=== PATIENT | female | born 1980 | race Caucasian/White ===

== ENCOUNTER 2018-07-25 06:15 | Day surgery (SDC) | payer OTHER ==
[2018-07-25] MEDS ORDERED: LR 1,000 ML IV ONE (06:31)
[2018-07-25] MEDS ORDERED: LIDOCAINE 1% 2 ML INJ ID PRN (06:31)
[2018-07-25] MEDS ORDERED: MONSELS-FERRIC SUBSULFATE 8 GM SDV TP ONE (06:56)
[2018-07-25] MEDS ORDERED: ACETIC ACID IRR SOLN 0.25% 1,000 ML BTL ONE (07:00)
[2018-07-25] MEDS ORDERED: SILVER SULFADIAZINE 50 GM JAR TP ONE (07:15)
[2018-07-25] MEDS ORDERED: MIDAZOLAM 2 MG/2 ML VIAL IVP ONE (08:01)
[2018-07-25] MEDS ORDERED: MIDAZOLAM 2 MG/2 ML VIAL ONE (08:03)
[2018-07-25] MEDS ORDERED: SCOPOLAMINE HYDROBROMIDE 1 MG/3 DAYS PATCH TD ONE (08:03)
--- NOTE | 2018-07-25 08:04 | PDANEPAE ---
ANE History of Present Illness Laser genital Condyloma ANE Past Medical History - Cardiovascular History Hx Hypertension: No Hx Arrhythmias: No Hx Chest Pain: No Hx Coronary Artery / Peripheral Vascular Disease: No Hx CHF / Valvular Disease: No Hx Palpitations: No - Pulmonary History Hx COPD: No Hx Asthma/Reactive Airway Disease: Yes Hx Recent Upper Respiratory Infection: No Hx Oxygen in Use at Home: No Hx Sleep Apnea: No Sleep Apnea Screening Result - Last Documented: Negative Pulmonary History Comment: JUVENILE ASTHMA - NONE IN ADULTHOOD. PNEUMONIA IN 20s - Neurologic History Hx Cerebrovascular Accident: No Hx Seizures: No Hx Dementia: No Neurologic History Comment: HORMONAL MIGRAINES OCCAS - Endocrine History Hx Diabetes: No Hypothyroid: No Hyperthyroid: No Obesity: no - Renal History Hx Renal Disorders: No - Liver History Hx Hepatic Disorders: No - Neurological & Psychiatric Hx Hx Neurological and Psychiatric Disorders: No - Cancer History Hx Cancer: No Cancer History Comment: CIM 3 GENE - Congenital Disorder History Hx Congenital Disorders: No - GI History GERD: no Hx Gastrointestinal Disorders: Yes Gastrointestinal History Comment: 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 HPV GENITAL - Chronic Pain History Chronic Pain: Yes (PLANTAR FASCITIS) - Surgical History Prior Surgeries: WISDOM TEETH ANE Review of Systems Review of systems is: negative Review of Systems: - Exercise capacity METS (RN): 5 METS ANE Patient History - Allergies Allergies/Adverse Reactions: hydrocodone [Hydrocodone] Allergy (Verified 06/28/18 12:37) DIZZY & NAUSEA - Home Medications Home medications: home medication list seen and reviewed (dark coffee no cream) Home Medications: Herbals/Supplements -Info Only 06/28/18 [Last Taken 07/10/18] Ibuprofen 06/28/18 [Last Taken 07/17/18] - NPO status NPO Since - Liquids (Date): 07/25/18 NPO Since - Liquids (Time): 05:30 NPO Since - Solids (Date): 07/24/18 NPO Since - Solids (Time): 21:00 - Smoking Hx Smoking Status: Never smoked Marijuana use: No - Alcohol Use Alcohol Use: Rarely - Family Anes Hx Family Anes Hx: none Family Hx Anesthesia Complications: NEG ANE Labs/Vital Signs - Vital Signs Blood Pressure: 148/88 Heart Rate: 85 Respiratory Rate: 16 O2 Sat (%): 99 Height: 158.75 cm Weight: 69.853 kg ANE Physical Exam - Airway Neck exam: FROM Mallampati Score: Class 1 Mouth exam: normal dental/mouth exam - Pulmonary Pulmonary: no respiratory distress, no rales or rhonchi - Cardiovascular Cardiovascular: regular rate and rhythym, no murmur, rub, or gallop - ASA Status ASA Status: I ANE Anesthesia Plan Anesthesia Plan: GA w LMA
[2018-07-25] MEDS ORDERED: fentaNYL 100 MCG/2 ML INJ ONE ×5 (08:11→10:00)
[2018-07-25] MEDS ORDERED: PROPOFOL/EMULSION 500 MG/50 ML BOTTLE IV ONE (08:11)
--- NOTE | 2018-07-25 08:14 | PDHPUP ---
History & Physical Update H&P update statement: This history and physical update is based on an assessment of the patient which was completed after admission or registration (within 24 hours), but prior to the surgery/procedure. H&P update: H&P reviewed & patient examined, no change in patient's condition since H&P completed
[2018-07-25] MEDS ORDERED: SCOPOLAMINE HYDROBROMIDE 1 MG/3 DAYS PATCH TD SCH (08:15)
[2018-07-25] MEDS ORDERED: ONDANSETRON 4 MG/2 ML VIAL ONE (08:20)
[2018-07-25] MEDS ORDERED: DEXAMETHASONE 4 MG/ML VIAL ONE (08:20)
[2018-07-25] MEDS ORDERED: KETOROLAC 30 MG/1 ML SDV ONE (08:20)
[2018-07-25] MEDS ORDERED: PROPOFOL 200 MG/20 ML VIAL ONE ×4 (08:32→10:00)
[2018-07-25] MEDS ORDERED: LIDOCAINE 1% 300 MG/30 ML SDV ONE (08:33)
[2018-07-25] MEDS ORDERED: METOCLOPRAMIDE 10 MG/2 ML VIAL ONE (08:37)
[2018-07-25] MEDS ORDERED: POTASSIUM IODIDE/IODINE (LUGOL'S SOLN) 500 ML TP ONE (09:00)
[2018-07-25] MEDS ORDERED: PHENYLEPHRINE HCL 100 MCG/ML SYR ONE (09:08)
[2018-07-25] MEDS ORDERED: ACETAMINOPHEN 500 MG TAB PO PRN (10:29)
[2018-07-25] MEDS ORDERED: fentaNYL 100 MCG/2 ML INJ IVP PRN (10:29)
[2018-07-25] MEDS ORDERED: NALOXONE HCL 0.4 MG/ML INJ IVP PRN (10:29)
[2018-07-25] MEDS ORDERED: HYDROmorphONE/DILAUDID 1 MG/ML INJ IVP PRN (10:29)
[2018-07-25] MEDS ORDERED: ONDANSETRON 4 MG/2 ML VIAL IVP PRN (10:29)
[2018-07-25] MEDS ORDERED: PROMETHAZINE HCL 25 MG/ML INJ IVP PRN (10:29)
[2018-07-25] MEDS ORDERED: oxyCODONE IR 5 MG TAB PO PRN (10:29)
--- NOTE | 2018-07-25 10:31 | POSTANESTH ---
Post Anesthetic Evaluation Cardiovascular Status: Normal, Stable Respiratory Status: Normal, Stable Level of Consciousness/Mental Status: Can Participate in Eval Pain Control: Adequate, Prn Tx Ordered Nausea/Vomiting Control: Adequate, Prn Tx Ordered Complications Possibly Related to Anesthesia: None Noted
--- NOTE | 2018-07-25 10:37 | POSTOPPROG ---
Post Op Note Date of Operation: 07/25/18 Surgeon: Denisse Roman Anesthesiologist: Ivonne Meyers MD Anesthesia: LMA Pre-op Diagnosis: vulvar, vaginal anal condyloma Post-op Diagnosis: same Indication: as above Procedure: laser fulgarization of condyloma Findings: several condyloma on right labia majora and several on introitus , multipl Inf/Abcess present in the surg proc area at time of surgery?: No EBL: Minimal
--- NOTE | 2018-07-25 11:18 | GOP ---
DATE OF OPERATION: 07/25/2018 SURGEON: Denisse Roman MD ANESTHESIA: General with LMA. ANESTHESIOLOGIST: Ivonne Meyers MD. PREOPERATIVE DIAGNOSIS: Progressively worsening genital, anal condylomata. POSTOPERATIVE DIAGNOSIS: Progressively worsening genital, anal condylomata. PROCEDURE PERFORMED: Laser ablation/fulguration of vulvar, anal, and vaginal condylomata. FINDINGS: There were several small condylomata on the right labia majora. There were several at the introitus, mostly on the patient's right, that were very small condylomata, and then there was a lar ge cluster of condyloma at between 12 and 4 o'clock on the anus, and then there were some lateral to this that were also about 3-4 mm in size. ESTIMATED BLOOD LOSS: Minimal. INDICATIONS: Patient is a 37-year-old who has had progressively worsening vulvar, anal, condylomata and desires laser treatment for these. She has not tried any medical therapy as they have gotten so large that she has decided to have them surgically treated. DESCRIPTION OF PROCEDURE: With informed consent signed, patient taken to the operating room, placed under general anesthesia, placed in the high dorsal lithotomy position, prepped and draped in usual s terile fashion, and Hibiclens was used for cleaning treatment. Next, acetic acid was applied to the tissue, and laser and microscope set up. However, there was a s olid 45 minutes of problem-solving, trying to get the laser beam to function correctly. After some t christiano and changing out the lens and trying to realign the laser, we were able to get it to work, and us ed a different lens so the laser was not as strong, so increased the typical power from 9 armstrong up to 20 and then took it off super pulse and changed it to continuous pulse. Spot size was about 4 mm. Laser fulguration of all these condylomata. Some were excised with a scalpel, and prior to the laser , I pre injected with about 5 cc of 1% lidocaine without epi. Once it was felt that the laser had pe netrated and removed most of the condylomata and into the dermis about 1 mm (this was done on the rig ht labia and the anus and then at the introitus), I did some laser fulguration of the introital condy chichi. Hemostasis was noted and Silvadene cream applied. Patient awakened in the operating room, wily en to Recovery Room in stable condition. Tolerated the procedure well. COMPLICATIONS: None, except that it took about 45 minutes to get the laser to function correctly. /[id number]/MODL
[2018-07-25 11:47] VITALS: BP 111/75
== END 2018-07-25 12:15 | disposition home or self-care (01) ==
LOC: FSGY 06:15
PROVIDERS: ATTEND Obstetrics & Gynecology Gynecology
DX: A63.0 Anogenital (venereal) warts (principal)
CPT/HCPCS: J1100; J1885; J2250; J2370; J2405; J2704; J2765; J3010